=== PATIENT | male | born 1970 | race Caucasian/White ===

== ENCOUNTER 2017-12-14 23:47 | Emergency (ER) | payer OTHER ==
[~2017-12-14] VITALS: Ht 182.9 cm; Wt 120.7 kg
[2017-12-15 00:05] VITALS: Ht 182.9 cm; Wt 120.7 kg
[2017-12-15 06:02] VITALS: BP 127/76
== END 2017-12-15 06:02 | disposition home or self-care (01) ==
LOC: ED 23:47
DX: R51 Headache (principal)
CPT/HCPCS: J1200; J1885; J2765; J3475; J3490; J7030